=== PATIENT | male | born 1985 | race Caucasian/White ===

== ENCOUNTER 2022-07-24 16:23 | Emergency (ER) | payer OTHER ==
[~2022-07-24] VITALS: Ht 172.7 cm; Wt 108.8 kg
[~2022-07-24 16:23] MED LIST: ABX PO; BENADRYL25 MG PO; CYCLOBENZAPRINE10 MG PO; IBUPROFEN800 MG PO; KEPPRA1000 MG PO; NEURONTIN100 MG PO; NORCO 5-325 TA1 EACH PO; SERTRALINE HCL100 MG PO; ZOLOFT100 MG PO
[2022-07-24] MEDS ORDERED: FLONASE ALLERG9.9 ML NAS (21:12)
[2022-07-24] MEDS ORDERED: AMOXICILLIN500 MG PO (21:12)
[2022-07-24] MEDS ORDERED: IBU800 MG PO (21:12)
== END 2022-07-24 21:28 | disposition home or self-care (01) ==
LOC: ED 16:23
DX: H66.91 Otitis media, unspecified, right ear (principal); H69.91 Unspecified Eustachian tube disorder, right ear; F43.10 Post-traumatic stress disorder, unspecified; F17.200 Nicotine dependence, unspecified, uncomplicated; Z88.8 Allergy status to other drugs, medicaments and biological substances; Z79.899 Other long term (current) drug therapy
CPT/HCPCS: 99282; A9270

== ENCOUNTER 2022-07-31 09:54 | Emergency (ER) | payer OTHER ==
[~2022-07-31] VITALS: Ht 185.4 cm; Wt 108.4 kg
[~2022-07-31 09:54] MED LIST changes: +AMOXICILLIN500 MG PO; +FLONASE ALLERG9.9 ML NAS; +IBU800 MG PO
--- OUTSIDE RECORDS SUMMARY | 2022-07-31 10:03 | XMS ---
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 EAlpesh VISIT COUNT (12 MO.) 2 [facility] TOTAL 2 NOTE: Visits indicate total known visits. ED/UCC VISIT TRACKING (12 MO.) 07/31/2022 09:55 [facility] TYPE: Emergency COMPLAINT: - VOMITING, CRAMPS, SKIN PROBLEM 07/24/2022 16:24 [facility] TYPE: Emergency COMPLAINT: - EAR PAIN DIAGNOSES: - Post-traumatic stress disorder, unspecified - Other intermediate accountant (current) drug therapy - Allergy status to other drugs, medicaments and biological substances - Otitis media, unspecified, right ear - Nicotine dependence, unspecified, uncomplicated - Otalgia, right ear - Unspecified Eustachian tube disorder, right ear INPATIENT VISIT TRACKING (12 MO.) No inpatient visits to display in this time frame [email or web address]
[2022-07-31] MEDS ORDERED: ONDANSETRON ODT4 MG PO (14:57)
[2022-07-31 15:08] VITALS: BP 122/78
== END 2022-07-31 15:08 | disposition home or self-care (01) ==
LOC: ED 09:54
DX: B34.9 Viral infection, unspecified (principal); E86.0 Dehydration; R10.12 Left upper quadrant pain; F17.200 Nicotine dependence, unspecified, uncomplicated; Z79.899 Other long term (current) drug therapy
CPT/HCPCS: 36415; 80053; 81001; 83735; 85025; 96361; 96374; 99284-25; J2405; J7030